=== PATIENT | male | born 1970 | race Two or more races ===

== ENCOUNTER 2018-01-06 08:55 | Outpatient (CLI) | payer OTHER | END 2018-01-06 09:21 | disposition home or self-care (01) | LOC: RAD 501 08:55 | DX: M54.5 Low back pain (principal); R10.2 Pelvic and perineal pain ==

== ENCOUNTER 2019-05-30 07:53 | Outpatient (CLI) | payer OTHER | END 2019-05-30 08:01 | disposition home or self-care (01) | LOC: SONOGRAMA 07:53 | DX: N30.00 Acute cystitis without hematuria (principal) ==

== ENCOUNTER 2019-08-08 14:13 | Emergency (ER) | payer OTHER ==
[~2019-08-08] VITALS: Ht 162.6 cm; Wt 60.3 kg
== END 2019-08-08 19:23 | disposition home or self-care (01) ==
LOC: ER 14:13
DX: S61.214A Laceration without foreign body of right ring finger without damage to nail, initial encounter (principal); W45.8XXA Other foreign body or object entering through skin, initial encounter; Y93.89 Activity, other specified; Y92.89 Other specified places as the place of occurrence of the external cause; Y99.8 Other external cause status

== ENCOUNTER 2021-06-26 08:35 | Outpatient (CLI) | payer OTHER | END 2021-06-26 08:47 | disposition home or self-care (01) | LOC: RAD 08:35 | DX: M25.571 Pain in right ankle and joints of right foot (principal); S93.431A Sprain of tibiofibular ligament of right ankle, initial encounter; S83.262A Peripheral tear of lateral meniscus, current injury, left knee, initial encounter ==

== ENCOUNTER 2022-05-17 06:45 | Emergency (ER) | payer OTHER ==
[~2022-05-17] VITALS: Ht 162.6 cm; Wt 61.2 kg
[2022-05-17] MEDS ORDERED: ZYRTEC10 MG PO (07:16)
[2022-05-17] MEDS ORDERED: MEDROLPACK PO (11:43)
[2022-05-17] MEDS ORDERED: CEPACOL SORE T1 EAC1 PO (11:43)
[2022-05-17] MEDS ORDERED: FLONASE16 GM NASAL (11:45)
[2022-05-17] MEDS ORDERED: TUSSI PRES-B L480 ML PO (11:48)
[2022-05-17] MEDS ORDERED: TUSNEL DM LIQU473 ML PO ×2 (11:49→11:51)
== END 2022-05-17 11:53 | disposition home or self-care (01) ==
LOC: ER 06:45
DX: J02.9 Acute pharyngitis, unspecified (principal); Z20.822 Contact with and (suspected) exposure to COVID-19; Z88.8 Allergy status to other drugs, medicaments and biological substances

== ENCOUNTER 2024-10-11 09:09 | Emergency (ER) | payer OTHER ==
[~2024-10-11] VITALS: Ht 162.6 cm; Wt 59.9 kg
[~2024-10-11 09:09] MED LIST: CEPACOL SORE T1 EAC1 PO; FLONASE16 GM NASAL; MEDROLPACK PO; TUSNEL DM LIQU473 ML PO; TUSSI PRES-B L480 ML PO; ZYRTEC10 MG PO
[2024-10-11 09:50] VITALS: BP 129/85; O2SAT 98
[2024-10-11] MEDS ORDERED: GUAIFENESIN/DEXTROMETHORPHAN 10ML BLIST.PACK PO ONE ×2 (10:15→10:27)
[2024-10-11] MEDS ORDERED: ACETAMINOPHEN 500 MG GEL..CAP PO ONE ×2 (10:15→10:26)
[2024-10-11] MEDS ORDERED: DEXAMETHASONE SODIUM PHOSPHATE 4 MG/ML VIAL IM ONE (10:15)
[2024-10-11] MEDS ORDERED: DEXAMETHASONE SODIUM PHOSPHATE 4 MG/ML VIAL ONE (10:27)
[2024-10-11 10:59] LABS: HEMATOCRIT 44.6 % (39.0-48.0); HEMOGLOBIN 15.5 g/dL (13-16.00); MEAN CELL VOLUME 95.3 fL (80.0-100.00); MEAN CORPUSCULAR HEMOGLOBIN 33.1 pg (27.00-32.0); MEAN CORPUSCULAR HGB CONC 34.8 g/dl (32.0-36.0); PLATELET COUNT 190 K/uL (150-450); RED BLOOD COUNT 4.68 M/uL (4.00-6.00); RED CELL DISTRIBUTION WIDTH 13.1 % (11.5-14.5)
[2024-10-11] MEDS ORDERED: TUSNEL LIQUID178 ML PO (11:56)
[2024-10-11] MEDS ORDERED: OSEL75CA PO (11:56)
== END 2024-10-11 12:56 | disposition home or self-care (01) ==
LOC: ER 09:12
PROVIDERS: General Practice
DX: J10.1 Influenza due to other identified influenza virus with other respiratory manifestations (principal); Z88.0 Allergy status to penicillin; Z91.018 Allergy to other foods; Z20.822 Contact with and (suspected) exposure to COVID-19